=== PATIENT | male | born 1970 | race Caucasian/White ===

== ENCOUNTER 2019-05-03 11:51 | Emergency (ER) | payer OTHER ==
[2019-05-03 12:10] VITALS: PULSE 67
[2019-05-03] MEDS ORDERED: HYDROmorphone 0.5 MG/0.5 ML Syringe IVPUSH ONE (12:23)
[2019-05-03] MEDS ORDERED: Ondansetron 4 MG/2 ML SDV IVPUSH ONE (12:23)
[2019-05-03] MEDS ORDERED: Sodium Chloride 0.9% 1,000 ML IV SCH (12:30)
--- NOTE | 2019-05-03 13:27 | EDM.PDOC ---
ED HPI GENERAL MEDICAL PROBLEM - General Chief Complaint: Abdominal Pain Stated Complaint: RIGHT SIDE UPPER ABD PAIN,VOMITING Time Seen by Provider: 05/03/19 12:10 Source of Information: Reports: Patient, Family History Limitations: Reports: No Limitations - History of Present Illness INITIAL COMMENTS - FREE TEXT/NARRATIVE: pt arrived with significant rt upper abdomanal pain. He has had some pain off and on for 2 weeks. It was much worse today. he has been going to Onset: Other ( this has been going on for the past 2 weeks. ) Duration: Hour(s): Location: Reports: Abdomen Associated Symptoms: Reports: Loss of Appetite, Nausea/Vomiting, Other ( rt upper abdomanal pain) Right Lower Abdomen Pain Score (Numeric/FACES): 5 - Related Data Allergies Allergy/AdvReac Type Severity Reaction Status Date / Time No Known Allergies Allergy Verified 06/21/14 08:31 Home Meds: Home Meds Lisinopril 20 mg PO DAILY 11/17/13 [History] atorvaSTATin [Lipitor] 20 mg PO BEDTIME 06/20/14 [History] Potassium Chloride [Klor-Con M20] 20 meq PO BID 11/27/14 [History] Past Medical History - Past Health History Medical/Surgical History: Denies Medical/Surgical History Cardiovascular History: Reports: High Cholesterol, Hypertension - Infectious Disease History Infectious Disease History: Reports: Chicken Pox Social & Family History - Tobacco Use Smoking Status *Q: Never Smoker - Caffeine Use Caffeine Use: Reports: Soda - Recreational Drug Use Recreational Drug Use: No ED ROS GENERAL - Review of Systems Review Of Systems: See Below Constitutional: Reports: Chills, Malaise HEENT: Reports: No Symptoms Respiratory: Reports: No Symptoms Cardiovascular: Reports: No Symptoms Endocrine: Reports: No Symptoms GI/Abdominal: Reports: Abdominal Pain, Nausea, Vomiting, Other (pain in the rt upper abdoman. ) : Reports: No Symptoms Musculoskeletal: Reports: No Symptoms Skin: Reports: No Symptoms ED EXAM, GI/ABD - Physical Exam Exam: See Below Text/Narrative:: pt arrived with pain in the rt upper abdoman. He has been going to work at [employer] and he oftern vomits. He has pain usually in the rt upper abdoman. Exam Limited By: No Limitations General Appearance: Alert, Anxious, Moderate Distress, Other (pt was very tender in the rt upper abdoman. ) Ears: Normal TMs Nose: Normal Inspection Throat/Mouth: Normal Inspection Neck: Normal Inspection Respiratory/Chest: No Respiratory Distress Cardiovascular: Regular Rate, Rhythm GI/Abdominal Exam: Other (pt has marked tenderness in the rt upper abdoman. ) (Male) Exam: Deferred Rectal (Males) Exam: Deferred Back Exam: Normal Inspection Extremities: Normal Inspection Neurological: Alert, Oriented, Normal Cognition Course - Vital Signs Last Recorded V/S: Last Vital Signs Temp 36.6 C 05/03/19 12:37 Pulse 67 05/03/19 12:37 Resp 17 05/03/19 12:37 BP 164/84 H 05/03/19 12:37 Pulse Ox 96 05/03/19 12:37 - Orders/Labs/Meds Orders: Active Orders 24 hr Category Date Time Status UA W/MICROSCOPIC [URIN] Urgent Lab 05/03/19 12:14 Ordered Iopamidol [Isovue-300 (61%)] Med 05/03/19 13:31 Active 150 ml IV . DIRECTED PRN Sodium Chloride 0.9% [Normal Saline] 1,000 ml Med 05/03/19 12:30 Active IV ASDIRECTED Sodium Chloride 0.9% [Normal Saline] 85 ml Med 05/03/19 13:45 Active IV ASDIRECTED Medication Orders Sodium Chloride (Normal Saline) 1,000 mls @ 999 mls/hr IV ASDIRECTED JULES Last Admin: 05/03/19 12:31 Dose: 999 mls/hr Sodium Chloride (Normal Saline) 85 mls @ 3.5 mls/sec IV ASDIRECTED JULES Stop: 05/03/19 15:00 Last Admin: 05/03/19 13:45 Dose: 3.5 mls/sec Iopamidol (Isovue-300 (61%)) 150 ml IV . DIRECTED PRN PRN Reason: RADIOLOGY EXAM Stop: 05/03/19 15:00 Last Admin: 05/03/19 13:45 Dose: 150 ml Labs: Laboratory Tests 05/03/19 05/03/19 05/03/19 Range/Units 12:30 12:30 12:30 WBC 9.8 (4.5-11.0) K/uL RBC 4.94 (4.30-5.90) M/uL Hgb 13.8 (12.0-15.0) g/dL Hct 42.2 (40.0-54.0) % MCV 85 (80-98) fL MCH 28 (27-31) pg MCHC 33 (32-36) % Plt Count 269 (150-400) K/uL Neut % (Auto) 54 (36-66) % Lymph % (Auto) 34 (24-44) % Phillips % (Auto) 8 H (2-6) % Eos % (Auto) 3 (2-4) % Baso % (Auto) 1 (0-1) % Sodium 139 L (140-148) mmol/L Potassium 3.5 L (3.6-5.2) mmol/L Chloride 102 (100-108) mmol/L Carbon Dioxide 26 (21-32) mmol/L Anion Gap 14.5 H (5.0-14.0) mmol/L BUN 10 (7-18) mg/dL Creatinine 1.0 (0.8-1.3) mg/dL Est Cr Clr Drug Dosing 96.22 mL/min Estimated GFR (MDRD) > 60 (>60) Glucose 93 (74-106) mg/dL Calcium 8.9 (8.5-10.1) mg/dL Total Bilirubin 0.5 (0.2-1.0) mg/dL AST 135 H (15-37) U/L ALT 164 H (12-78) U/L Alkaline Phosphatase 83 (46-116) U/L Total Protein 7.2 (6.4-8.2) g/dL Albumin 3.1 L (3.4-5.0) g/dL Globulin 4.1 H (2.3-3.5) g/dL Albumin/Globulin Ratio 0.8 L (1.2-2.2) Lipase 138 (73-393) U/L Meds: Medications Generic Name Dose Route Start Last Admin Trade Name Freq PRN Reason Stop Dose Admin Sodium Chloride 1,000 mls @ 999 mls/hr 05/03/19 12:30 05/03/19 12:31 Normal Saline IV 999 mls/hr ASDIRECTED JULES Administration Sodium Chloride 85 mls @ 3.5 mls/sec 05/03/19 13:45 05/03/19 13:45 Normal Saline IV 05/03/19 15:00 3.5 mls/sec ASDIRECTED JULES Administration Iopamidol 150 ml 05/03/19 13:31 05/03/19 13:45 Isovue-300 (61%) IV 05/03/19 15:00 150 ml . DIRECTED PRN Administration RADIOLOGY EXAM Discontinued Medications Generic Name Dose Route Start Last Admin Trade Name Costa PRN Reason Stop Dose Admin Hydromorphone HCl 0.5 mg 05/03/19 12:23 05/03/19 12:32 Dilaudid IVPUSH 05/03/19 12:24 0.5 mg ONETIME ONE Administration Ondansetron HCl 4 mg 05/03/19 12:23 05/03/19 12:31 Zofran IVPUSH 05/03/19 12:24 4 mg ONETIME ONE Administration Sodium Chloride 10 ml 05/03/19 13:45 05/03/19 13:45 Saline Flush FLUSH 05/03/19 13:46 10 ml ONETIME JULES Administration - Re-Assessments/Exams Free Text/Narrative Re-Assessment/Exam: 05/03/19 14:53 pt had no stones or thickening of the gb. cat scan showed a fatty liver. Pt will return for a hiada scan. Departure - Departure Time of Disposition: 14:39 Disposition: Home, Self-Care 01 Condition: Fair Clinical Impression: Intermittent upper abdominal pain, Fatty liver - Discharge Information Referrals: Rm Villalpando MD [Primary Care Provider] - Forms: ED Department Discharge Care Plan Goals: rtc if pain becomes intolerable, rtc thur am for a Hiada scan, norco 5/325 q6h prn for pain # 8 surgery consult on Thursday. Sepsis Event Note - Evaluation Sepsis Screening Result: No Definite Risk - Focused Exam Vital Signs: Vital Signs Temp Pulse Resp BP Pulse Ox 05/03/19 12:37 36.6 C 67 17 164/84 H 96 05/03/19 12:09 36.6 C 67 17 164/84 H 96 Date Exam was Performed: 05/03/19 Time Exam was Performed: 14:43 - My Orders Last 24 Hours: My Active Orders 05/03/19 12:14 UA W/MICROSCOPIC [URIN] Urgent 05/03/19 12:30 Sodium Chloride 0.9% [Normal Saline] 1,000 ml IV ASDIRECTED 05/03/19 13:31 Iopamidol [Isovue-300 (61%)] 150 ml IV . DIRECTED PRN 05/03/19 13:45 Sodium Chloride 0.9% [Normal Saline] 85 ml IV ASDIRECTED - Assessment/Plan Last 24 Hours: My Active Orders 05/03/19 12:14 UA W/MICROSCOPIC [URIN] Urgent 05/03/19 12:30 Sodium Chloride 0.9% [Normal Saline] 1,000 ml IV ASDIRECTED 05/03/19 13:31 Iopamidol [Isovue-300 (61%)] 150 ml IV . DIRECTED PRN 05/03/19 13:45 Sodium Chloride 0.9% [Normal Saline] 85 ml IV ASDIRECTED
[2019-05-03] MEDS ORDERED: Iopamidol 612 MG/ML 150 ML Bottle IV PRN (13:31)
[2019-05-03] MEDS ORDERED: Sodium Chloride 0.9% 10 ML Syringe FLUSH SCH (13:45)
--- NOTE | 2019-05-03 14:22 | US ---
Abdomen Ltd CLINICAL HISTORY: Right upper quadrant pain COMPARISON: None. TECHNIQUE: Real-time images were obtained through the right upper quadrant. FINDINGS: The liver is free of mass or biliary dilatation. There is increased tip recommendation echogenicity with some beam drop off. There is a hypoechoic area adjacent to the gallbladder fossa. The gallbladder has a normal appearance. The common bile duct measures 6 mm. The pancreas is free of masses seen. Tail is obscured. The right kidney has a normal appearance. The IVC is normal. IMPRESSION: Diffuse fatty infiltration of the liver with some focal fatty sparing near the gallbladder fossa. No mass or biliary dilatation
--- NOTE | 2019-05-03 14:28 | CT ---
Abdomen Pelvis w Cont CLINICAL HISTORY: Right upper quadrant pain COMPARISON: None. TECHNIQUE: Transverse scans were obtained from the base of the lungs to the pubic symphysis following oral contrast and IV infusion of contrast.Auto dosage reduction and iterative reconstructiontechniques employed. FINDINGS: The lung bases are clear. The liver is enlarged. There is diffuse fatty infiltration. No focal mass or intrahepatic ductal dilatation is identified.. The gallbladder has a normal appearance. The spleen is upper limits of normal size. The pancreas shows no mass or inflammatory change. The adrenal glands appear normal bilaterally . The kidneys show no mass, stones or hydronephrosis. There are a few tiny cysts in the left kidney. The left renal vein is retroaortic.. The ureters have a normal course and caliber. The aorta shows some atheromatous plaque without aneurysm. There is no suspicious retroperitoneal adenopathy. Small bowel configuration is nonacute. Appendix has a normal contour. There is no significant diverticulosis. The bladder has a normal contour. Inguinal regions are free of mass hernia or adenopathy IMPRESSION: Hepatomegaly with diffuse fatty infiltration No mass, adenopathy or inflammatory change
[2019-05-03 14:47] VITALS: BP 138/87
== END 2019-05-03 15:03 | disposition home or self-care (01) ==
LOC: JP.ED 11:51
DX: K76.0 Fatty (change of) liver, not elsewhere classified (principal); I10 Essential (primary) hypertension; E78.00 Pure hypercholesterolemia, unspecified; Z79.899 Other long term (current) drug therapy
CPT/HCPCS: 36415; 74177; 74177-26; 76705; 76705-26; 80053; 83690; 85025; 96361; 96374; 96375; 99284-25; J1170; J2405; J7030; J7050; Q9967

== ENCOUNTER 2019-05-06 06:55 | Day surgery (SDC) | payer OTHER ==
[~2019-05-06 06:55] MED LIST: Bupivacaine 0.5% 50 ML MDV ONE; Lidocaine 1% with EPINEPHrine 1:100,000 50 ML MDV ONE
[2019-05-06] MEDS ORDERED: Rocuronium 50 MG/5 ML Vial ONE (07:21)
[2019-05-06] MEDS ORDERED: fentaNYL 250 MCG/5 ML SDV ONE ×2 (07:21→09:38)
[2019-05-06] MEDS ORDERED: Succinylcholine 200 MG/10 ML MDV ONE (07:21)
[2019-05-06] MEDS ORDERED: Ondansetron 4 MG/2 ML SDV ONE ×2 (07:21→09:30)
[2019-05-06] MEDS ORDERED: Neostigmine Methylsulfate 1 MG/ML 5 ML Syringe ONE ×2 (07:21→09:30)
[2019-05-06] MEDS ORDERED: Glycopyrrolate 0.2 MG/ML 5 ML MDV ONE ×2 (07:21→09:30)
[2019-05-06] MEDS ORDERED: Dexamethasone 4 MG/ML SDV ONE ×2 (07:21→09:30)
[2019-05-06] MEDS ORDERED: Propofol 200 MG/20 ML SDV ONE (07:21)
[2019-05-06] MEDS ORDERED: metroNIDAZOLE/Normal Saline 500 MG in Premix Bag 1 BAG IV ONE (08:00)
[2019-05-06] MEDS ORDERED: Sodium Chloride 0.9% 1,000 ML IV SCH (08:00)
[2019-05-06] MEDS ORDERED: Acetaminophen/HYDROcodone 325-5 MG Tab PO PRN (08:02)
[2019-05-06] MEDS ORDERED: hydrOXYzine HCL 100 MG/2 ML SDV IM PRN (08:02)
[2019-05-06] MEDS ORDERED: Docusate Sodium 100 MG Cap PO PRN (08:02)
[2019-05-06] MEDS ORDERED: Benzocaine/Cetylpyridinium/Menthol Lozenge MUCMEM PRN (08:02)
[2019-05-06] MEDS ORDERED: Zolpidem 5 MG Tab PO PRN (08:02)
[2019-05-06] MEDS ORDERED: ceFAZolin 2 GM in Premix Bag 1 BAG IV ONE (08:30)
--- NOTE | 2019-05-06 12:53 | OR ---
DATE OF PROCEDURE: 05/06/2019 SURGEON: Justyn Alex MD PROCEDURE: Transversus abdominis plane block, bilaterally. COMPLICATION: None. PHARMACY SERVICES REPRESENTATIVE: None. RISKS: Risks, benefits, alternatives, and limitations including, but not limited to infection, bleeding, and injury to abdominal structures were explained to the patient, who wished to proceed. PROCEDURE IN DETAIL: The patient was placed in a supine position. Left transversus plane was identified first. This was accessed using a 13 megahertz ultrasound probe. Approximately 80% of the injection fluid was injected. The right side was then performed in the same manner, same fashion, same technique, and the same sequence using the same equipment. The patient tolerated the procedure well. Justyn Alex MD /[id number]
[2019-05-06 13:26] VITALS: BP 128/69; PULSE 68
--- NOTE | 2019-05-09 11:42 | OR ---
DATE OF PROCEDURE: 05/06/2019 SURGEON: Justyn Alex MD PROCEDURE: Laparoscopic cholecystectomy. PREOPERATIVE DIAGNOSES: Biliary dyskinesia, cholecystitis. POSTOPERATIVE DIAGNOSES: Biliary dyskinesia, cholecystitis. COMPLICATIONS: None. 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 ANESTHESIA: General. RISKS: Risks, benefits, alternatives, and limitations including, but not limited to infection, bleeding, injury to common bile duct, cystic duct leaks, possibility of open surgery, and other risks not listed here were explained to the patient who wished to proceed. PROCEDURE IN DETAIL: The patient was placed in supine position. A supraumbilical curvilinear incision was made. A Veress needle was used to enter the abdomen without abnormality. Drop test was performed without abnormality. An Optiview trocar was then used to insert without any evidence of abnormality. Two additional 5 and a 10 mm port were entered under direct visualization. The gallbladder was retracted cephalad. The infundibulum was retracted inferolaterally. A "clear view" of the gallbladder was obtained with a single pulsatile structure entering the gallbladder and a single non-pulsatile structure entering the gallbladder. These were clipped x3. The clips were verified to be completely across. The remaining one third of the gallbladder was removed off the gallbladder bed without abnormality. This was delivered through the superior port using a bag system. The abdomen was re-insufflated. The liver bed was inspected at low pressure and irrigated. No abnormal bleeding was noted. This was then thoroughly irrigated again and reinspected. Entry point was inspected. No evidence of enterotomy or injury was noted. The air was removed. The wounds were closed with 3-0 Vicryl and 4-0 Vicryl in interrupted running fashion, irrigated, and Dermabond was applied. The patient tolerated the procedure well. Justyn Alex MD /[id number]
== END 2019-05-06 13:53 | disposition home or self-care (01) ==
LOC: JP.SDS 06:55 → JP.MS 10:38 → JP.SDS 13:53
PROVIDERS: ATTEND Surgery
DX: K81.1 Chronic cholecystitis (principal); K82.8 Other specified diseases of gallbladder; I10 Essential (primary) hypertension; E78.5 Hyperlipidemia, unspecified; E66.9 Obesity, unspecified; E78.00 Pure hypercholesterolemia, unspecified; K76.0 Fatty (change of) liver, not elsewhere classified; Z79.899 Other long term (current) drug therapy; Z87.891 Personal history of nicotine dependence; Z68.39 Body mass index [BMI] 39.0-39.9, adult
CPT/HCPCS: 47562; A9270; J0171; J0330; J0690; J1100; J2405; J2704; J2710; J2795; J3010; J3490; J7030; J7050; 88304